=== PATIENT | male | born 2000 | race Caucasian/White ===

== ENCOUNTER 2025-03-15 02:09 | Emergency (ER) | payer MEDICAID, SELFPAY ==
--- OUTSIDE RECORDS SUMMARY | 2025-03-15 02:26 | XMS_ITS | Encounter Summary ---
Author Organization [facility] Address [address] [place] [address] Phone Care Team Providers Care Band Cutter Name Role Phone Alfonso Egan MD Primary Care Provider [phone] Encounter Details Date Type Department Care Team (Late st Contact Info) Description 03/31/2017 Conversion Encounter [facility] - [address], [address] [place] [address] Alfonso Egan MD [address] [place] [address] Social History Tobacco Use Types Packs/Day Years Used Date Smoking Tobacco: Never Assessed Sex and Gender Information Value Date Recorded Sex Assigned at Not on file Legal Sex Male 5:53 PM EST Gender Identity Not on file Sexual Orientation Not on file documented as of this encounter Plan of Treatment Not on file documented as of this encounter Visit Diagnoses Not on filedocumented in this encounter Care Teams Band Cutter Relationship Specialty Start Date End Date Alfonso Egan MD [address] [place] [address] PCP - General 10/13/16 03/22/22 documented as of this encounter
[2025-03-15 02:29] VITALS: BP 126/83; PULSE 49; RESP 12; TEMP 36.4; O2SAT 99; BMI 26.3
--- NOTE | 2025-03-15 04:03 | PC.NURSE ---
patient reporting he is going to leave, has an appt with doctor on Wednesday and wants to go home to get some sleep will follow up on Wednesday. Educated on when to return to emergency department
== END 2025-03-15 04:06 | disposition left against medical advice (07) ==
PROVIDERS: Emergency Provider Emergency Medicine; PCP Internal Medicine
DX: J39.2 Other diseases of pharynx (principal); Z53.21 Procedure and treatment not carried out due to patient leaving prior to being seen by health care provider
CPT/HCPCS: 99281

== ENCOUNTER 2025-03-15 18:30 | Emergency (ER) | payer MEDICAID, SELFPAY ==
[2025-03-15 18:43] VITALS: BP 123/96; PULSE 70; RESP 18; TEMP 36.5; O2SAT 99; BMI 25.6
--- NOTE | 2025-03-15 18:43 | ED_ITS ---
HPI - General Adult General Chief complaint: General Medical Stated complaint: reaction to meds was here lastnight didnt get seen Time Seen by Provider: 03/15/25 20:56 History of Present Illness ED Provider: SKY HPI narrative: 25 M with nonspecific psych d/o , OCD, started calypta a few weeks ago, yesterday started he was sucking on his tongue. Called psychiatrist cant be seen until tomorrow 9am. He feels that his jaw muscles are tightening and moving. No difficulty breathing denies any swelling of the oropharyngeal cavity subjectively. No other symptoms other than difficulty sleeping past few nights. Related Data Allergies Allergy/AdvReac Type Severity Reaction Status Date / Time hydroxyzine Allergy Hallucinati Verified 03/15/25 18:43 ons [facility] Social History Social History Advance Directives: No Advance Directives Information Provided: No Do you have a plan to hurt others: No Plan Physical Exam ED Exam Exam: EXAM: Gen: Alert, awake, well appearing, well hydrated. Head: Atraumatic Eyes: Anicteric, Normal conjunctiva. ENT: Moist mucosa, no pallor. ?Occasional bruxism. No objective edema of the lips tongue or oropharynx. Neck: Supple. Skin: ?No observable rash or bruising on exposed or examined skin Respiratory: Breathing comfortably, No distress.Clear to auscultation bilaterally, symmetric chest expansion, No wheeze, rales, ronchi. Cardiovascular: Regular rate and rhythm. No murmurs or rub. Well perfused periphery, warm extremities. No edema. ? Abdominal: No focal tenderness. Soft, no objective distension. No palpable masses or obvious organomegaly. ?No guarding, no rebound tenderness or other peritoneal findings. : No flank tenderness. Neuro: Alert. Gross movement of all extremities intact. ? Psych: Calm. Cooperative. MSK: No grossly visible deformity. Vital signs: See flowsheet Vital Signs: Vital Signs - 24 hr 03/15/25 18:43 03/15/25 20:51 Temperature 97.7 F 97.9 F Pulse Rate 70 54 Respiratory Rate 18 16 Blood Pressure 123/96 H 143/93 H Pulse Oximetry 99 99 Oxygen Delivery Method Room Air Room Air BMI result Body Mass Index 25.6 Course Course Course Narrative: This is an RME: Additional HPI, ROS, PE not included below will be deferred to primary provider. RME assessment and note performed by: Carmen Sexton PA-C This is a 28-ukcq-sdh-male, with a hx of OCD, who presents to the ER with concerns of jaw tightness, insomnia x several weeks. Reports that he has been started on a new anti-psychotic 6 weeks ago Caplyta, was on olanzepine. He does have an appointment with a psychiatrist tomorrow however states that he is at his ?wits end. No SI or HI. No auditory or visual hallucinations . Plan: Labs, EKG, further ER evaluation needed. Medications Administered Discontinued Medications Generic Name Dose Route Start Last Admin Trade Name Freq PRN Reason Stop Dose Admin Diphenhydramine HCl 25 mg 03/15/25 21:19 03/15/25 21:30 Diphenhydramine Hcl 25 Mg Capsule PO 03/15/25 21:20 25 mg ONCE ONE Administration Lorazepam 1 mg 03/15/25 21:22 03/15/25 21:30 Lorazepam 1 Mg Tablet PO 03/15/25 21:23 1 mg ONCE ONE Administration Medical Decision Making Medical Decision Making MDM Narrative: Medical Decision Making: [age] male with bruxism tongue sucking and other oropharyngeal symptoms that suggest tardive dyskinesia given the relatively new antipsychotic medication he is on. Patient is seeing psychiatrist 9 in the morning. Insomnia likely related to his uncomfortable neuromuscular symptoms of his face. There is no evidence of airway obstruction or other complication. Plan for benzos/antihistamine Preliminary Favored Differential Diagnosis: Tardive dyskinesia, muscle spasm, antipsychotic adverse effect, insomnia among additional considered etiologies Testing Interpreted Independently: Not Applicable Radiology or Lab testing Results Reviewed: Not Applicable Consults: Not Applicable Independent Historians/External Chart Reviews: Not Applicable Social Determinants of Health Impacting MDM/Planning: Not Applicable Lab Data 03/15/25 20:08 03/15/25 20:08 Labs: Lab Results 03/15/25 Range/Units 20:08 WBC 8.6 (4.8-10.8) X10*3/uL RBC 5.54 (4.60-5.80) X10*6/uL Hgb 15.7 (14.0-18.0) g/dl Hct 45.8 (42.0-52.0) % MCV 82.7 (80.0-98.0) fL MCH 28.3 (27.0-33.0) pg MCHC 34.3 (31.0-36.0) g/dl RDW 11.5 (11.0-16.0) % Plt Count 208 (160-400) X10*3/uL MPV 9.2 L (9.4-12.4) fL Immature Gran % (Auto) 0.5 H (0.0-0.4) % Neut % (Auto) 66.3 (45-73) % Lymph % (Auto) 25.0 (20-40) % [facility] % (Auto) 6.9 (2-11) % Eos % (Auto) 0.9 (0-4) % Baso % (Auto) 0.4 (0-2) % Lymph # (Auto) 2.1 (1.2-4.9) X10*3/uL [facility] # (Auto) 0.6 (0.1-1.2) X10*3/uL Eos # (Auto) 0.1 (0.0-0.4) X10*3/uL Baso # (Auto) 0.0 (0.0-0.2) X10*3/uL Abs Immat Gran (auto) 0.04 H (0.00-0.03) X10*3/uL Absolute Neuts (auto) 5.7 (2.0-8.3) x10*3/uL Absolute Nucleated RBC 0.000 (0.0-0.012) X10*3/uL Nucleated RBC % (auto) 0.0 (0.0-0.2) /100WBC Sodium 143 (135-145) mmol/L Potassium 3.7 (3.3-5.1) mmol/L Chloride 107 (96-108) mmol/L Carbon Dioxide 27 (22-29) mmol/L Anion Gap 13 (12-20) BUN 9 (9-16) mg/dL Creatinine 1.09 (0.5-1.4) mg/dL Estim Creat Clear Calc 102.6 Estimated GFR > 60 Random Glucose 91 (60-115) mg/dL Calcium 9.7 (8.4-10.2) mg/dL Magnesium 2.2 (1.6-2.6) mg/dL Total Bilirubin 0.4 (0.0-1.0) mg/dL Direct Bilirubin 0.2 (0.0-0.5) mg/dL AST 26 (5-37) U/L ALT 38 (0-40) U/L Alkaline Phosphatase 75 (39-117) U/L Troponin I High Sens < 2.7 (<3.5-35.0) ng/L Total Protein 7.8 (6.5-8.0) g/dL Albumin 5.1 H (3.5-5.0) g/dL Discharge Plan Discharge Clinical Impression: Inappropriate facial movement Patient Disposition: Home, Self-Care Instructions: Adverse Drug Reaction (ED) Additional Instructions: _ DISCHARGE DIAGNOSES: Suspected tardive dyskinesia but this can not be proven by any testing. You were given Benadryl and lorazepam and got a ride home safely HISTORY OF PRESENTATION: ?Muscle movements uncomfortable EMERGENCY DEPARTMENT COURSE,TESTS, TREATMENTS: While in the ED today you were given Benadryl and lorazepam DISCHARGE MEDICATIONS: ?[We have made no changes to your regular medication regimen] FOLLOW-UP: ?Call your primary or general physician soon as possible to discuss your symptoms, your ED visit and to discuss follow up plans Continue with your previously scheduled psychiatric appointment tomorrow. INSTRUCTIONS ?& RETURN PRECAUTIONS: If any symptoms change first call your primary physician, if it is after-hours your primary doctors office should have a provider customer consultant you can speak with. If the symptoms are severe or very concerning to you then call 911 or return to the ED. [07] Felipe Mirza MD Emergency Physician [facility] Language: [place]
--- NOTE | 2025-03-15 18:46 | ECG_ITS ---
Test Reason : dizziness Blood Pressure : */* mmHG Vent. Rate : 49 BPM Atrial Rate : 49 BPM P-R Int : 166 ms QRS Dur : 100 ms QT Int : 418 ms P-R-T Axes : 21 45 51 degrees QTcB Int : 377 ms Sinus bradycardia Otherwise normal ECG No previous ECGs available Referred By: Carmen Sexton Electronically Signed By: Chris Gonsales
[2025-03-15 20:16] LABS: MANUAL DIFF FLAG NO
[2025-03-15 20:17] LABS: Hematocrit 45.8 % (42.0-52.0); Hemoglobin 15.7 g/dl (14.0-18.0); Imm Gran Abs Auto 0.04 X10*3/uL (0.00-0.03); Imm Gran Pct Auto 0.5 % (0.0-0.4); Lymphocytes Absolute Auto 2.1 X10*3/uL (1.2-4.9); Mean Corpuscular HGB Conc 34.3 g/dl (31.0-36.0); Mean Corpuscular Hemoglobin 28.3 pg (27.0-33.0); Mean Corpuscular Volume 82.7 fL (80.0-98.0); NRBC Abs Auto 0.000 X10*3/uL (0.0-0.012); NRBC Pct Auto 0.0 /100WBC (0.0-0.2); Platelet Count 208 X10*3/uL (160-400); Red Blood Count 5.54 X10*6/uL (4.60-5.80); White Blood Count 8.6 X10*3/uL (4.8-10.8)
[2025-03-15 20:33] LABS: Albumin Level 5.1 g/dL (3.5-5.0); Alkaline Phosphatase 75 U/L (39-117); Anion Gap 13 (12-20); Aspartate Amino Transferase 26 U/L (5-37); Blood Urea Nitrogen 9 mg/dL (9-16); Calcium 9.7 mg/dL (8.4-10.2); Carbon Dioxide 27 mmol/L (22-29); Chloride 107 mmol/L (96-108); Creatinine Clr Calc Pharmacy 102.6; Estimated Glomerular Filt Rate > 60; Magnesium 2.2 mg/dL (1.6-2.6); Potassium 3.7 mmol/L (3.3-5.1); Sodium 143 mmol/L (135-145); Total Protein 7.8 g/dL (6.5-8.0)
[2025-03-15 20:40] LABS: Troponin-I High Sensitivity < 2.7 ng/L (<3.5-35.0)
--- NOTE | 2025-03-15 20:49 | PC.NURSE ---
pt states he started a new psych medication caplyta 6 wks ago, started having uncontrollable mouth movement 3 days ago, jaw pain 5/10 from this. Pt states has not slept in 3 days. Psychiatrist discontinued medication for now.
[2025-03-15 20:51] VITALS: BP 143/93; PULSE 54; RESP 16; TEMP 36.6; O2SAT 99
--- OUTSIDE RECORDS SUMMARY | 2025-03-15 21:04 | XMS_ITS | Encounter Summary ---
Author Organization [facility] Address [address] [place] [address] Phone Care Team Providers Care Counselor Aide Name Role Phone Alfonso Egan MD Primary Care Provider [phone] Encounter Details Date Type Department Care Team (Late st Contact Info) Description 03/31/2017 Conversion Encounter [facility] - [address], [address] [place] [address] Alfonso Egan MD [address] [place] [address] Social History Tobacco Use Types Packs/Day Years [...] on filedocumented in this encounter Care Teams Counselor Aide Relationship Specialty Start Date End Date Alfonso Egan MD [address] [place] [address] PCP - General 10/13/16 03/22/22 documented as of this encounter
[2025-03-15 21:14] LABS: Alanine Aminotransferase 38 U/L (0-40)
[2025-03-15 21:44] VITALS: BP 143/93; PULSE 54; RESP 16; TEMP 36.6; O2SAT 99
== END 2025-03-15 21:47 | disposition home or self-care (01) ==
PROVIDERS: Physician Assistant Medical; Emergency Provider Emergency Medicine; PCP Internal Medicine
DX: M27.8 Other specified diseases of jaws (principal); F42.8 Other obsessive-compulsive disorder; T43.595A Adverse effect of other antipsychotics and neuroleptics, initial encounter; F15.982 Other stimulant use, unspecified with stimulant-induced sleep disorder
CPT/HCPCS: 36415; 80048; 80076; 83735; 84484; 85025; 93005; 99283; 99284

== ENCOUNTER → 2025-03-15 18:46 | Outpatient (BNV) | payer MEDICAID, SELFPAY | PROVIDERS: Emergency Provider Emergency Medicine; PCP Internal Medicine; Visit Provider Internal Medicine Cardiovascular Disease | DX: R00.1 Bradycardia, unspecified (principal) | CPT/HCPCS: 93010 ==